=== PATIENT | male | born 2005 | race Caucasian/White ===

== ENCOUNTER 2024-10-17 14:12 | Emergency (ER) | payer OTHER, SELFPAY ==
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
--- OUTSIDE RECORDS SUMMARY | 2024-10-17 14:15 | XMS_ITS | Encounter Summary ---
Author Organization [facility] Address [address] [place] [address] Care Team Providers Care Skill Labor Name Role Phone Sowmya Davis NP Primary Care Provider [phone] Encounter Details Date Type Department Care Team (Latest Contact Info) Description 10/13/2024 Sqoott Message Enc [facility]ty Clinic [address] [address] Jacob Brink MD [address] [phone] Ayesha Rowan appointment 7:30 am 10/14 Social History Tobacco Use Types Packs/Day Years Used Date Smoking Tobacco: Never Smokeless Tobacco: Never Alcohol Use Standard Drinks/Week Comments Yes 0 (1 standard drink = 0.6 oz pur e alcohol) rarely Sex and Gender Information Value Date Recorded Sex Assigned at Not on file Legal Sex Male 7:07 PM CDT Gender Identity Not on file Sexual Orientation Not on file documented as of this encounter Plan of Treatment Upcoming Encounters Date Type Department Care Team (Late st Contact Info) Description 11/07/2024 3:00 PM CDT Hospital Encounter [facility] One [place], [place] [id number] Jacob Brink MD [address] [address] 11/07/2024 3:00 PM CDT - 11/07/2024 3:30 PM CDT Surgery [facility] [place]o/[place] [address] Jacob Brink MD [address] [address] EGD Scheduled Procedures Name Priority Associated Diagnoses Date/Ti me EGD Acid reflux 11/07/2024 3:00 PM CDT documented as of this encounter Visit Diagnoses Not on filedocumented in this encounter Care Teams Skill Labor Relationship Specialty Start Date End Date Sowmya Davis NP [address] [place] [address] PCP - General MILIEU COORDINATOR 08/19/24 documented as of this encounter
--- OUTSIDE RECORDS SUMMARY | 2024-10-17 14:15 | XMS_ITS | Clinical Summary ---
Author Organization [facility] Address [address] [address] [place] [address] Phone Care Team Providers Care Stockroom Worker Name Role Phone Unavailable Primary Care Provider Unavailabl e Social History Tobacco Use Types Packs/Day Years Used Date Smoking Tobacco: Never Assessed Adolescent Education Answer Date Record ed Getting School Help Needed Not on file 01/12 Sex and Gender Information Value Date Recorded Sex Assigned at Not on file Legal Sex Male 11:34 AM CDT Gender Identity Not on file Sexual Orientation Not on file Plan of Treatment Upcoming Encounters Date Type Department Care Team (Late st Contact Info) Description 10/20/2024 10:40 AM CDT Office Visit [facility] Primary [facility] [address] [place] [address] Miguelito Balderas, CASSANDRAC [address] [place] [address] Health Maintenance Due Date Last Done Comments CHLAMYDIA SCREENING (ANNUAL) 11-24 YEARS 09/28/2015 HPV VACCINES (1 - Male 3-dose series) 09/28/2019 DTAP/TDAP/TD VACCINES (1 - Tdap) 09/28/2023 HEPATITIS B VACCINES (1 of 3 - 19+ 3-dose series) 10/2023 INFLUENZA VACCINE (#1) 2024
--- OUTSIDE RECORDS SUMMARY | 2024-10-17 14:15 | XMS_ITS | Clinical Summary ---
Author Organization [facility] Address [address] [place] [address] Care Team Providers Care Apron Cleaner Name Role Phone Sowmya Davis NP Primary Care Provider [phone] Allergies No known active allergies Medications fluconazole (DIFLUCAN) 200 MG tablet Take 1 tablet (200 mg total) by mouth daily. 4 Active diphenhydramine -maalox-lidocai ne viscous (MAGIC MOUTHWASH) (MAGIC MOUTHWASH) oral suspension Swish & spi 30 mLs every 6 (six) hours as needed for Irritation. swish & spit/swallow 200 mL 4 Active Additional Information Patient not taking.Reported on 09/30/2024 Active Problems Problem Noted Date Diagnosed Date Acid reflux 09/30/2024 Encounters Date Type Department Care Team Description 10/15/2024 Orders Only [facility] Multispecialty Care - [address], [address] [place] [address] Jacob Brink MD 10/13/2024 MyChart Message Enc [facility] Gastro[facility]ology Specialty Clinic [address] [address] Jacob Brink MD Cael Lacefield appointment 7:30 am 10/1410/07/2024 11:59 PM CDT Anesthesia Event [facility] [address] [place] [address] Kathia Odonnell CRNA 10/01/2024 [facility]phone [facility] - [address], [address] [place] [address] Jacob Brink MD Prior Authorization ([id number]) 09/30/2024 1:40 PM CDT Office Visit [facility]ty Clinic [address] [address] Jacob Brink MD Consult (GERD at times, with dyshagia) 09/30/2024 Orders Only [facility] - [address], [address] [place] [address] Jacob Brink MD 09/30/2024 Travel from Last 3 Months Social History Tobacco Use Types Packs/Day Years Used Date Smoking Tobacco: Never Smokeless Tobacco: Never Tobacco Cessation:Counseling Given: Not Answered Alcohol Use Standard Drinks/Week Comments Yes 0 (1 standard drink = 0.6 oz pur e alcohol) rarely Sex and Gender Information Value Date Recorded Sex Assigned at Not on file Legal Sex Male 7:07 PM CDT Gender Identity Not on file Sexual Orientation Not on file Last Filed Vital Signs Vital Sign Reading Time Taken Comments Blood Pressure 124/80 09/30/2024 1:34 PM CDT Pulse 80 09/30/2024 1:34 PM CDT Temperature 36.5 C (97.7 F) 02/08/2024 2:53 PM CDT Respiratory Rate 16 09/30/2024 1:34 PM CDT Oxygen Saturation 96% 09/30/2024 1:34 PM CDT Inhaled Oxygen Concentration - - Weight 94.3 kg (208 lb) 10/01/2024 10:46 AM CDT Height 190.5 cm (6' 3 ) 10/01/2024 10:46 AM CDT Body Mass Index 26 10/01/2024 10:46 AM CDT Plan of Treatment Upcoming Encounters Date Type Department Care Team (Late st Contact Info) Description 11/07/2024 3:00 PM CDT Hospital Encounter [facility] [place] [address] Jacob Brink MD [address] [address] 11/07/2024 3:00 PM CDT - 11/07/2024 3:30 PM CDT Surgery [facility] [place] [address] Jacob Brink MD [address] [id number] EGD Scheduled Procedures Name Priority Associated Diagnoses Date/Ti me EGD Acid reflux 11/07/2024 3:00 PM CDT Health Maintenance Due Date Last Done Comments Annual Physical 09/28/2007 HPV Vaccines (1 - Male 3-dos e series) 09/28/2019 Meningococcal B Vaccine (1 o f 2 - Standard) 2020 Hepatitis C 2022 DTaP, Tdap and Td Vaccines ( 1 - Tdap) 09/28/2023 Hepatitis B Vaccines (1 of 3 - 19+ 3-dose series) 09/28/2023 COVID-19 Vaccine (3 - 2023-2 5 season) 2024 01/25/2021, 01/04/2021 PHQ-2 (Physician [place]) 06/25/2024 Meningococcal Vaccine Aged Out No can sharee eligible based on patient's age to complete this topic Pneumococcal Vaccine: Pediatrics (0 to 5 Years) and At-Risk Patients (6 to 49 Years) Aged Out No longer eligible b ased on patient's age to complete this topic RSV Immunizations Under 20 Months Aged Out No longer eligible b ased on patient's age to complete this topic Goals Goal Patient Goal Type Associated Problems Recent Progress Patient-Stated? Author Autogenera lupe Goal Care Plan Autogenerated Problem No Clary Pederson, OCEAN FREIGHT AGENT Additional Health Concerns Active Problems Noted Date Diagnosed Date Autogenerated Problem 10/15/2024 Insurance [employer] [facility] Care Teams Apron Cleaner Relationship Specialty Start Date End Date Sowmya Davis NP [address] [place] [address] PCP - General CAN VACUUM TESTER 08/19/24
[2024-10-17 14:42] VITALS: BP 149/84; PULSE 73; RESP 16; TEMP 36.4; O2SAT 100
--- NOTE | 2024-10-17 14:48 | PC.NURSE ---
No c spine tenderness upon palpation.
--- OUTSIDE RECORDS SUMMARY | 2024-10-17 15:58 | XMS_ITS | Clinical Summary ---
Author Organization [facility] Address [address] [address] [place] [address] Phone Care Team Providers Care System Auditor Name Role Phone Unavailable Primary Care Provider [...] Description 10/20/2024 10:40 AM CDT Office Visit [facility] [address] [place] [address] Miguelito Balderas, CASSANDRAC [address] [place] [address] Health Maintenance Due Date Last Done Comments CHLAMYDIA SCREENING (ANNUAL) 11-24 YEARS 09/28/2015 HPV VACCINES (1 - Male 3-dose series) 09/28/2019 DTAP/TDAP/TD VACCINES (1 - Tdap) 09/28/2023 HEPATITIS B VACCINES (1 of 3 - 19+ 3-dose series) 10/2023 INFLUENZA VACCINE (#1) 2024
--- OUTSIDE RECORDS SUMMARY | 2024-10-17 15:58 | XMS_ITS | Encounter Summary ---
Author Organization [facility] Address [address] [place] [address] Care Team Providers Care Nursing Education Consultant Name Role Phone Sowmya Davis NP Primary Care Provider [phone] Encounter Details Date Type Department Care Team (Latest Contact Info) Description 10/13/2024 BRAINDIGITt Message Enc [facility] Medical [facility] Gastroenterology Specialty Clinic [address] [address] Jacob Brink MD [address] [phone] Ayesha Rowan appointment 7:30 am 10/14 Social [...] Description 11/07/2024 3:00 PM CDT Hospital Encounter [facility] One Day [facility] [place], [place] [phone] Jacob Brink MD [address] [address] 11/07/2024 3:00 PM CDT - 11/07/2024 3:30 PM CDT Surgery [facility] [place] [address] Jacob Brink MD [address] [address] EGD Scheduled Procedures Name Priority Associated Diagnoses Date/Ti me EGD Acid reflux 11/07/2024 3:00 PM CDT documented as of this encounter Visit Diagnoses Not on filedocumented in this encounter Care Teams Nursing Education Consultant Relationship Specialty Start Date End Date Sowmya Davis NP [address] [place] [address] PCP - General LOOP TENDER 08/19/24 documented as of this encounter
--- OUTSIDE RECORDS SUMMARY | 2024-10-17 15:58 | XMS_ITS | Clinical Summary ---
Author Organization [facility] Address [address] [place] [address] Care Team Providers Care Stave Saw Operator Name Role Phone Sowmya Davis NP Primary Care Provider [phone] Allergies No known active allergies Medications fluconazole [...] Department Care Team Description 10/15/2024 Orders Only [facility] Multispecialty Care - [address], [address] [place] [address] Jacob Brink MD 10/13/2024 MyChart Message Enc [facility] Medical Group Gastroenterology Specialty Clinic [address] [address] Jacob Brink MD Cael Lacefield appointment 7:30 am 10/1410/07/2024 11:59 PM CDT Anesthesia Event [facility] Surgical Services [address] [place] [address] Kathia Odonnell CRNA 10/01/2024 Telephone [facility] - [address], [address] [place] [address] Jacob Brink MD Prior Authorization ([id number]) 09/30/2024 1:40 PM CDT Office Visit [facility] G[facility]ology Specialty Clinic [address] [address] Jacob Brink MD Consult (GERD at times, with dyshagia) 09/30/2024 Orders Only [facility] - [address], [address] [place] [address] Jacob Brink MD 09/30/2024 Travel from Last [...] 11/07/2024 3:00 PM CDT Hospital Encounter [facility] [place] [address] Jacob Brink MD [address] [address] 11/07/2024 3:00 PM CDT - 11/07/2024 3:30 PM CDT Surgery [facility] [place] [address] Jacob Brink MD [address] [phone] EGD Scheduled Procedures Name Priority Associated Diagnoses [...] 5 season) 2024 01/25/2021, 01/04/2021 PHQ-2 (Physician [place]) 06/25/2024 Meningococcal Vaccine Aged Out No can [...] Care Plan Autogenerated Problem No Clary Pederson, CORRECTIONAL THERAPY TEACHER Additional Health Concerns Active Problems Noted Date Diagnosed Date Autogenerated Problem 10/15/2024 Insurance [employer] OPEN [facility] Care Teams Stave Saw Operator Relationship Specialty Start Date End Date Sowmya Davis NP [address] [place] [address] PCP - General PLASTIC PANEL INSTALLER 08/19/24
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
[2024-10-17] MEDS: HYDROcodone/acetaminophen (*CRX) 5-325 MG TABLET 1 TAB PO (16:49)
[2024-10-17 18:59] VITALS: BP 118/70; PULSE 74; RESP 16; TEMP 36.6; O2SAT 100
== END 2024-10-17 19:01 | disposition home or self-care (01) ==
PROVIDERS: Emergency Provider Student in an Organized Health Care Education/Training Program
DX: T14.8XXA Other injury of unspecified body region, initial encounter (principal); S00.12XA Contusion of left eyelid and periocular area, initial encounter; S81.012A Laceration without foreign body, left knee, initial encounter; V89.2XXA Person injured in unspecified motor-vehicle accident, traffic, initial encounter; W22.10XA Striking against or struck by unspecified automobile airbag, initial encounter
CPT/HCPCS: 12001; 70486; 73080; 73562; 99284; A9270